=== PATIENT | female | born 1960 | race Caucasian/White ===

== ENCOUNTER 2019-11-14 22:39 | Emergency (ER) | payer MEDICAID ==
[~2019-11-14 22:39] MED LIST: BUPR1FIL SL; BUSP30TA PO; GABA300C10 PO; GABAPENTIN; HYDR-826 PO; SUBOXONE SL; TRAZ-137 PO; TRAZADONE; VENL75CA PO; VENLAFAXINE; buspirone
--- NOTE | 2019-11-14 23:25 | NUR ---
DISCUSSING DC PAPERWORK WITH PA. RX INTO SHRED BOX DUE TO PT HAVING MULTIPLE PARTIALLY FILLED ATARAX BOTTLES IN HER MEDICINE BAG. PT GIVEN TAXI VOUCHER PER REQUEST.
[2019-11-14 23:26] VITALS: BP 129/74
--- NOTE | 2019-11-14 23:35 | NUR ---
PT SITTING IN ROOM ON HER PHONE. PT ENCOURAGED TO WALK TO DC DESK. PT WALKED TO DC DESK WITH STEADY GAIT.
== END 2019-11-14 23:36 | disposition home or self-care (01) ==
LOC: ED 23:12
DX: F10.220 Alcohol dependence with intoxication, uncomplicated (principal); F11.23 Opioid dependence with withdrawal; Y90.9 Presence of alcohol in blood, level not specified
CPT/HCPCS: 99283